=== PATIENT | female | born 1960 | race Caucasian/White ===

== ENCOUNTER → 2017-02-05 | Outpatient (CLI) | payer BC ==
[~2017-02-05] MED LIST: ECOTRIN325 M1 PO; MEDI-FIRST ASP325 MG PO; MULTIVITAMIN FO1 CAP PO; OSTEO-BI-FLEX 21 TAB PO; PREVACID 24HR15 MG PO
== END ==
LOC: RAD 09:05
DX: M79.671 Pain in right foot (principal); M77.31 Calcaneal spur, right foot

== ENCOUNTER → 2017-04-27 | Outpatient (CLI) | payer BC ==
[~2017-04-27] VITALS: Ht 172.7 cm; Wt 84.1 kg
[2017-04-27] VITALS (19 sets, daily range): BP systolic 118–143; BP diastolic 64–99
== END ==
LOC: AMSURD 10:57 → LAB 10:57
DX: R10.13 Epigastric pain (principal); R10.32 Left lower quadrant pain; D62 Acute posthemorrhagic anemia
CPT/HCPCS: J7050; P9016; Q9967

== ENCOUNTER → 2017-04-28 | Outpatient (CLI) | payer BC ==
[2017-04-27 22:30] VITALS: BP 128/83
== END ==
LOC: LAB 08:05
DX: D64.9 Anemia, unspecified (principal); R10.9 Unspecified abdominal pain

== ENCOUNTER → 2017-04-30 | Outpatient (CLI) | payer BC ==
[2017-04-27 22:30] VITALS: BP 128/83
== END ==
LOC: LAB 10:11
DX: D62 Acute posthemorrhagic anemia (principal); R10.13 Epigastric pain; R10.32 Left lower quadrant pain

== ENCOUNTER → 2017-05-03 | Outpatient (CLI) | payer BC ==
[2017-04-27 22:30] VITALS: BP 128/83
== END ==
LOC: LAB 08:58
DX: D50.0 Iron deficiency anemia secondary to blood loss (chronic) (principal)

== ENCOUNTER → 2017-05-05 | Outpatient (CLI) | payer BC ==
[2017-04-27 22:30] VITALS: BP 128/83
== END ==
LOC: LAB 15:52
DX: D62 Acute posthemorrhagic anemia (principal); R10.13 Epigastric pain; R10.32 Left lower quadrant pain

== ENCOUNTER → 2017-05-24 | Outpatient (CLI) | payer BC ==
[2017-04-27 22:30] VITALS: BP 128/83
== END ==
LOC: LAB 11:02
DX: D50.0 Iron deficiency anemia secondary to blood loss (chronic) (principal)

== ENCOUNTER → 2017-06-08 | Outpatient (CLI) | payer BC ==
[2017-04-27 22:30] VITALS: BP 128/83
== END ==
LOC: LAB 09:59
DX: R89.9 Unspecified abnormal finding in specimens from other organs, systems and tissues (principal); D64.9 Anemia, unspecified

== ENCOUNTER → 2019-01-31 | Outpatient (CLI) | payer BC ==
[2017-04-27 22:30] VITALS: BP 128/83
== END ==
LOC: MAMMO 13:45
DX: Z12.31 Encounter for screening mammogram for malignant neoplasm of breast (principal)

== ENCOUNTER → 2019-11-13 | Outpatient (RCR) | payer BC ==
[2017-04-27 22:30] VITALS: BP 128/83
== END | disposition still patient (30) ==
LOC: PT
DX: M75.21 Bicipital tendinitis, right shoulder (principal); Z98.890 Other specified postprocedural states

== ENCOUNTER 2020-06-17 16:00 | Outpatient (RCR) | payer BC ==
[2017-04-27 22:30] VITALS: BP 128/83
== END 2020-06-18 | disposition still patient (30) ==
LOC: PT
DX: M75.22 Bicipital tendinitis, left shoulder (principal); Z98.890 Other specified postprocedural states

== ENCOUNTER 2020-07-23 09:45 | Outpatient (RCR) | payer BC ==
[2017-04-27 22:30] VITALS: BP 128/83
== END 2020-07-23 10:15 ==
LOC: PT 09:45
DX: M75.22 Bicipital tendinitis, left shoulder (principal)

== ENCOUNTER 2021-01-08 17:40 | Outpatient (RCR) | payer BC ==
[2021-01-02 18:27] VITALS: BP 117/78
[2021-01-02 21:55] VITALS: BP 126/80
[~2021-01-08 17:40] MED LIST changes: +ELIQUIS2.5 MG PO; +TEMAZEPAM7.5 M1 PO
[2021-01-08 18:03] VITALS: BP 127/84
[2021-01-08] MEDS ORDERED: ONE-DAILY MULT1 EACH PO (18:05)
[2021-01-08 21:32] VITALS: BP 127/88
== END 2021-01-08 20:00 | disposition home or self-care (01) ==
LOC: AMSURD 17:40
DX: Z79.899 Other long term (current) drug therapy (principal)
CPT/HCPCS: J1756; J7050